=== PATIENT | female | born 1950 | race American Indian/Alaskan Native ===

== ENCOUNTER 2016-06-16 16:41 | Emergency (ER) | payer BC, OTHER ==
[2016-06-16 16:50] VITALS: BP 151/83
[2016-06-16] MEDS ORDERED: DELTASONE PO ONE (19:31)
[2016-06-16] MEDS ORDERED: ATROVENT IH ONE (19:31)
[2016-06-16] MEDS ORDERED: XOPENEX IH ONE (19:31)
--- NOTE | 2016-06-16 19:31 | Emergency Department Report ---
HPI - General Chief Complaint: Adult Asthma Time Seen by Provider: 06/16/16 19:27 - HPI HPI: This is a 65-year-old patient with history of sarcoidosis she said is in remission. She is here complaining of exacerbation of asthma for 2 weeks and cough and. She says she's been coughing for 3 days. Reports that she's been having some chills. Denies any shortness of breath or chest pain. Denies any nausea vomiting. Has any history of heart disease. She has a history of asthma sarcoidosis and hypertension. She is taking [id number] cough medicine but it's not helping. She denies any pain. ED Past Medical Hx - Past Medical History Previous Medical History?: Yes Hx Hypertension: Yes Hx Congestive Heart Failure: No Hx Diabetes: No Hx Asthma: Yes Hx COPD: No Additional medical history: sarcoidosis, high cholesterol - Surgical History Past Surgical History?: Yes Hx Breast Surgery: Yes (lump removed from right breast) Additional Surgical History: tubal ligation - Family History Family history: diabetes, hypertension - Social History Smoking Status: Never Smoker Substance Use Type: Alcohol, Prescribed - Medications Home Medications: Home Medications Medication Instructions Recorded Confirmed Last Taken Type Aspirin [Aspirin BABY CHEW TAB] 81 mg PO DAILY 05/08/13 05/08/13 Unknown History Azithromycin [Zithromax Z-ELLA] 250 mg PO BID 05/08/13 05/08/13 05/07/13 History methylPREDNISolone [Medrol Dose 4 mg PO BID 05/08/13 05/08/13 Unknown History Ella] Albuterol Sulfate [Ventolin HFA] 1 inh IH Q4-6H PRN #1 hfa.aer.ad 06/16/16 Unknown Rx Clarithromycin [Biaxin] 500 mg PO BID #20 tab 06/16/16 Unknown Rx guaiFENesin/CODEINE [Robitussin AC] 10 ml PO QHS PRN #70 oral.liqd 06/16/16 Unknown Rx predniSONE [Deltasone] 50 mg PO QDAY #5 tab 06/16/16 Unknown Rx ED Review of Systems ROS: Stated complaint: WHEEZING/COUGHING Other details as noted in HPI Comment: All other systems reviewed and negative Constitutional: chills. denies: fever, malaise, weakness Eyes: denies: eye discharge ENT: denies: ear pain, throat pain, congestion Respiratory: cough, wheezing. denies: shortness of breath, SOB with exertion, SOB at rest, stridor Cardiovascular: denies: chest pain, palpitations, edema, syncope Gastrointestinal: denies: abdominal pain, nausea, vomiting Musculoskeletal: denies: back pain, joint swelling, arthralgia, myalgia Skin: denies: rash Neurological: denies: headache, weakness, numbness, paresthesias, confusion, abnormal gait, vertigo Physical Exam - Physical Exam Vital Signs: Vital Signs 06/16/16 16:46 Temperature 98.7 F Pulse Rate 102 H Respiratory 20 Rate Blood Pressure 151/83 O2 Sat by Pulse 98 Oximetry Vital Signs 06/16/16 06/16/16 06/16/16 16:46 19:43 20:00 Temperature 98.7 F Pulse Rate 102 H Pulse Rate [ 89 95 H Posterior Bilateral] Respiratory 20 Rate Respiratory 18 18 Rate [Posterior Bilateral] Blood Pressure 151/83 O2 Sat by Pulse 98 Oximetry 06/16/16 21:22 Temperature Pulse Rate 82 Pulse Rate [ Posterior Bilateral] Respiratory Rate Respiratory Rate [Posterior Bilateral] Blood Pressure O2 Sat by Pulse Oximetry General: This is a 65-year-old female well-nourished well-developed in no acute distress. Physical Exam: Head: Normocephalic atraumatic Mouth: Moist, no pharyngeal exudate or erythema. Uvula is midline and oral airway is patent. No facial swelling. No peritonsillar abscesses. Nose: Congested without erythema to mucosa. Maxillary and frontal sinuses nontender to palpate Neck: Supple, no C-spine tenderness, no tracheal deviation. Nontender to palpate. no adenopathy Ears: Bilateral TMs congested without erythema. Bilateral EAC without any redness swelling or drainage. Abdomen: Soft, nontender to palpate in all quadrants, normal bowel sounds in all quadrant and negative CVA tenderness bilaterally. Eyes: Bilateral pupils equal and reactive to light, bilateral EOM intact. Bilateral sclera and conjunctiva without injection. Normal accommodation. No Lungs: Scattered wheezing to upper lung bradshaw, Audible rhonchi that cleared with coughing.Normal work of breathing without any use of accessory muscle. Congested cough. extremity; No CCE. +2 pulses. No neurovascular compromise Cardiovascular: S1-S2, regular rate rhythm. No murmurs. Refill is less than 3 seconds Psych: Normal mood and behavior ED Course Vital Signs 06/16/16 16:46 Temperature 98.7 F Pulse Rate 102 H Respiratory 20 Rate Blood Pressure 151/83 O2 Sat by Pulse 98 Oximetry Vital Signs 06/16/16 06/16/16 06/16/16 16:46 19:43 20:00 Temperature 98.7 F Pulse Rate 102 H Pulse Rate [ 89 95 H Posterior Bilateral] Respiratory 20 Rate Respiratory 18 18 Rate [Posterior Bilateral] Blood Pressure 151/83 O2 Sat by Pulse 98 Oximetry 06/16/16 21:22 Temperature Pulse Rate 82 Pulse Rate [ Posterior Bilateral] Respiratory Rate Respiratory Rate [Posterior Bilateral] Blood Pressure O2 Sat by Pulse Oximetry - Reevaluation(s) Reevaluation #1: 06/16/16 20:30 Patient given Xopenex 2.5 mg and Atrovent 0.5 mg nebulizer in emergency room. She was also given Deltasone 60 mg by mouth. Reevaluation #2: 06/16/16 21:30 Upon reevaluation after nebulizer treatment and steroid, patient states she felt better. Lung sounds are clear.. ED Medical Decision Making - Radiology Data Radiology results: report reviewed Chest x-ray revealed no acute cardiopulmonary processes. - Medical Decision Making ED course: Discussed with patient that her chest x-ray did not show any acute findings such as infection. Sarcoidosis. I discussed with her that she has acute asthma flareup and will be treated with steroids, cough medicine at night , albuterol and antibiotic due to her history of sarcoidosis to prevent any infection. Patient is stable and feeling better and she voiced understanding of discharge instruction and diagnosis. Surgical home with prescription for prednisone, Biaxin, albuterol inhaler and guaifenesin with codeine cough medicine for nighttime. Critical care attestation.: If time is entered above; I have spent that time in minutes in the direct care of this critically ill patient, excluding procedure time. ED Disposition Clinical Impression: Cough Asthma exacerbation attacks Qualifiers: Asthma severity: mild persistent Qualified Code(s): J45.31 - Mild persistent asthma with (acute) exacerbation Disposition: DISCHARGED TO HOME OR SELFCARE Is pt being admited?: No Does the pt Need Aspirin: No Condition: Stable Instructions: Asthma (ED), Acute Cough (ED) Additional Instructions: Please see medication as instructed Increase her fluid intake Follow up with your Primary care /cell reliner in 2 days. Cough medicine that was prescribed to cause her to be drowsy so please only take at night and do not operate any motor vehicle or heavy machinery. Prescriptions: guaiFENesin/CODEINE [Robitussin AC] 10 ml PO QHS PRN #70 oral.liqd PRN Reason: Cough Albuterol Sulfate [Ventolin HFA] 1 inh IH Q4-6H PRN #1 hfa.aer.ad PRN Reason: Cough and wheezing Clarithromycin [Biaxin] 500 mg PO BID #20 tab predniSONE [Deltasone] 50 mg PO QDAY #5 tab Referrals: PRIMARY CAREMD [Primary Care Provider] - 06/18/16
--- NOTE | 2016-06-16 20:54 | XRay Report ---
FINAL REPORT PROCEDURE: XR CHEST ROUTINE 2V TECHNIQUE: PA and lateral chest radiographs were obtained. CPT 08694 HISTORY: cough for 2 weeks with chills COMPARISON: No prior studies are available for comparison. FINDINGS: Heart: Normal contour. Mediastinum/Vessels: Normal contour. Lungs/Pleural space: No infiltrate, effusion, or pneumothorax. Bony thorax: No acute osseous abnormality. Other: IMPRESSION: No pulmonary infiltrates are identified.
== END 2016-06-16 21:57 | disposition home or self-care (01) ==
LOC: ED 16:41
DX: J45.31 Mild persistent asthma with (acute) exacerbation (principal); I10 Essential (primary) hypertension; E78.00 Pure hypercholesterolemia, unspecified; D86.9 Sarcoidosis, unspecified
CPT/HCPCS: 71020; 94640; 99283; J7512

== ENCOUNTER 2021-05-17 08:27 | Emergency (ER) | payer MEDICARE, MEDICAID ==
[2021-05-17 08:52] VITALS: BP 168/97
[2021-05-17] MEDS ORDERED: PHENAZOPYRIDINE 200 MG TAB PO ONE (09:57)
--- NOTE | 2021-05-17 10:03 | Emergency Department Report ---
ED Female HPI - General Chief complaint: Urogenital-Female Stated complaint: UTI Time Seen by Provider: 05/17/21 09:56 Source: patient Mode of arrival: Ambulatory Limitations: No Limitations - History of Present Illness Initial comments: Patient presents with a 2-day history of dysuria and frequency. She states it actually started last week and had resolved. She was drinking a lot of water last week. Over the last 2 days, symptoms have returned. She reports urinary frequency, discomfort, and urinating only small amounts. There is urgency ass ociated with this. She has no flank pain or fever. She states that she is only having discomfort in the perineal area. She has had a urinary tract infection before. She has not been on antibiotics lately. There is no hematuria. - Related Data Home Medications Medication Instructions Recorded Confirmed Last Taken Aspirin [Aspirin BABY CHEW TAB] 81 mg PO DAILY 05/08/13 05/08/13 Unknown Previous Rx's Medication Instructions Recorded Last Taken Type Albuterol Sulfate [Ventolin HFA] 1 inh IH Q4-6H PRN #1 hfa.aer.ad 06/16/16 Unknown Rx Phenazopyridine [Pyridium] 200 mg PO TID #9 tab 05/17/21 Unknown Rx Allergies Allergy/AdvReac Type Severity Reaction Status Date / Time No Known Allergies Allergy Verified 05/08/13 01:04 ED Review of Systems ROS: Stated complaint: UTI Other details as noted in HPI Comment: All other systems reviewed and negative Constitutional: denies: fever Eyes: denies: vision change ENT: denies: throat pain Respiratory: denies: cough Cardiovascular: denies: chest pain Endocrine: denies: unexplained weight loss Gastrointestinal: as per HPI Genitourinary: as per HPI Musculoskeletal: denies: back pain Skin: denies: rash Neurological: denies: headache Hematological/Lymphatic: denies: easy bruising ED Past Medical Hx - Past Medical History Hx Hypertension: Yes Hx Congestive Heart Failure: No Hx Diabetes: No Hx Asthma: Yes Hx COPD: No Additional medical history: sarcoidosis, high cholesterol - Surgical History Hx Breast Surgery: Yes (lump removed from right breast) Additional Surgical History: tubal ligation - Family History Family history: hypertension - Social History Smoking Status: Never Smoker Substance Use Type: Alcohol, Prescribed - Medications Home Medications: Home Medications Medication Instructions Recorded Confirmed Last Taken Type Aspirin [Aspirin BABY CHEW TAB] 81 mg PO DAILY 05/08/13 05/08/13 Unknown History Albuterol Sulfate [Ventolin HFA] 1 inh IH Q4-6H PRN #1 hfa.aer.ad 06/16/16 Unknown Rx Phenazopyridine [Pyridium] 200 mg PO TID #9 tab 05/17/21 Unknown Rx ED Physical Exam - General Limitations: No Limitations, Other (Pulse ox noted and normal) General appearance: alert, in no apparent distress, obese, other (Appears uncomfortable) - Head Head exam: Present: atraumatic, normocephalic - Eye Eye exam: Present: normal appearance, EOMI - ENT ENT exam: Present: normal external ear exam - Neck Neck exam: Present: normal inspection. Absent: meningismus - Respiratory Respiratory exam: Present: normal lung sounds bilaterally. Absent: respiratory distress - Cardiovascular Cardiovascular Exam: Present: normal rhythm, tachycardia - GI/Abdominal GI/Abdominal exam: Present: soft. Absent: tenderness - Extremities Exam Extremities exam: Present: normal capillary refill - Back Exam Back exam: Absent: CVA tenderness (R), CVA tenderness (L) - Neurological Exam Neurological exam: Present: alert, oriented X3, CN II-XII intact, normal gait. Absent: motor sensory deficit - Psychiatric Psychiatric exam: Present: normal affect, normal mood - Skin Skin exam: Present: warm, dry ED Course Vital Signs 05/17/21 08:50 Temperature 98.1 F Pulse Rate 111 H Respiratory 20 Rate Blood Pressure 168/97 O2 Sat by Pulse 99 Oximetry - Reevaluation(s) Reevaluation #2: 05/17/21 10:02 UA was ordered. Old records reviewed. Reevaluation #3: 05/17/21 10:57 Urine is noted and normal. IV and labs have been ordered. Reevaluation #4: 05/17/21 12:13 Patient was discharged ED Medical Decision Making - Lab Data Result diagrams: 05/17/21 11:04 05/17/21 11:04 - Medical Decision Making Patient presents with urinary signs and symptoms. She has evidence of urinary tract infection. She does not have CVA tenderness or fever to suggest pyelo nephritis. She does not appear to be septic or toxic. She was tachycardic and in pain which came in. At the time of discharge, heart rate is improved. On my exam, heart rate is 90. Patient does not have any evidence of leukocytosis or acute kidney injury. She does not appear to be septic or toxic. There is no peritoneal finding on exam. I do not believe the suprapubic discomfort is related to diverticulitis as there is no GI symptom and no tenderness in the left lower quadrant. She certainly does not have a pulsatile mass that would suggest AAA. She does not appear to have right lower quadrant tenderness suggestive of appendicitis. Critical Care Time: No Critical care attestation.: If time is entered above; I have spent that time in minutes in the direct care of this critically ill patient, excluding procedure time. ED Disposition Clinical Impression: Dysuria Disposition: HOME / SELF CARE / HOMELESS Is pt being admited?: No Condition: Stable Additional Instructions: drink water. see your doctor for recheck. return for problems. Prescriptions: Phenazopyridine [Pyridium] 200 mg PO TID #9 tab Referrals: SOWMYA MARTINEZ MD [Primary Care Provider] - 3-5 Days BHARGAVI ROONEY MD [Staff Physician] - 3-5 Days
[2021-05-17 10:20] LABS: Amorphous Crystals,Urine Few; Bacteria,Urine 1+ /HPF (Negative); Bilirubin,Urine NEG (Negative); Blood,Urine SM (Negative); Color,Urine Yellow (Yellow); Mucus,Urine FEW /HPF; Protein,Urine <15 mg/dL mg/dL (Negative); Urobilinogen,Urine < 2.0 mg/dL (<2.0)
[2021-05-17] MEDS ORDERED: SODIUM CHLORIDE 0.9% 1000 ML 1,000 ML IV ONE (10:57)
[2021-05-17 11:19] LABS: Hematocrit 35.4 % (30.3-42.9); Hemoglobin 12.8 gm/dl (10.1-14.3); Mean Corpuscular HGB Conc 36 % (30-34); Mean Corpuscular Volume 92 fl (79-97); Platelet Count 247 K/mm3 (140-440); Red Blood Count 3.85 M/mm3 (3.65-5.03); Red Cell Distribution Width 13.8 % (13.2-15.2)
[2021-05-17 11:39] LABS: Blood Urea Nitrogen 13 mg/dL (7-17); Calcium 9.5 mg/dL (8.4-10.2); Hemolysis Index 14
[2021-05-17 11:41] LABS: BUN/Creatinine Ratio 22
== END 2021-05-17 12:26 | disposition home or self-care (01) ==
LOC: ED 08:27
DX: R30.0 Dysuria (principal); I10 Essential (primary) hypertension; J45.909 Unspecified asthma, uncomplicated
CPT/HCPCS: 36415; 80048; 81001; 85027; 96360; 99283; J7030; Q0162